=== PATIENT | male | born 1965 | race Caucasian/White ===

== ENCOUNTER 2018-04-03 14:09 | Inpatient (IN) | payer OTHER ==
[~2018-04-03] VITALS: Ht 170.2 cm; Wt 117.9 kg
[~2018-04-03 14:09] MED LIST: ABILIFY2 MG; ADVAIR HFA 115/12 GM; ADVAIR HFA 115/12 GM PO; ALBUTEROL2.5 MG/3 M IH; AMLODIPINE BES2.5 MG; AMLODIPINE BESYL5 MG PO; ATIVAN0.5 MG; BUPROPION HCL75 MG; HYZAAR 100-121 UDTAB PO; IBUPROFEN800 MG PO; LEVAQUIN750 MG PO; LEVOTHYROXINE50 MCG PO; LISINOPRIL2.5 MG; MEDROL4 MG PO; MEDROLPACK PO; ORPH100T PO; PAROXETINE HCL20 MG; PROAIR HFA8.5 GM IH; RESTORIL7.5 MG; SINGULAIR4 MG
== END 2018-04-09 17:01 | disposition home or self-care (01) | DRG 202 ==
LOC: ER 14:09 → MEDI 04-04 13:27
PROC: 3E0F7GC Introduction of Other Therapeutic Substance into Respiratory Tract, Via Natural or Artificial Opening (ICD-10-PCS; 2018-04-04)
PROC: BW40ZZZ Ultrasonography of Abdomen (ICD-10-PCS; principal; 2018-04-05)
PROC: B246ZZZ Ultrasonography of Right and Left Heart (ICD-10-PCS; 2018-04-07)
DX: J45.41 Moderate persistent asthma with (acute) exacerbation (principal); J44.1 Chronic obstructive pulmonary disease with (acute) exacerbation; J44.0 Chronic obstructive pulmonary disease with (acute) lower respiratory infection; J20.9 Acute bronchitis, unspecified; E66.8 Other obesity; I10 Essential (primary) hypertension; G47.33 Obstructive sleep apnea (adult) (pediatric); B96.3 Hemophilus influenzae [H. influenzae] as the cause of diseases classified elsewhere